=== PATIENT | female | born 1945 | race Caucasian/White ===

== ENCOUNTER → 2019-03-20 | Outpatient (CLI) | payer MEDICARE | END | disposition home or self-care (01) | LOC: LAB SHORT 15:37 → LAB 15:37 | DX: N39.0 Urinary tract infection, site not specified (principal) | CPT/HCPCS: 87077; 87086; 87186 ==

== ENCOUNTER 2022-09-28 10:01 | Observation (INO) | payer MEDICARE ==
[~2022-09-28] VITALS: Ht 167.6 cm; Wt 75.2 kg
[2022-09-28 10:22] LABS: BASOPHILS ABSOLUTE AUTO 0.09 K/mm3 (0.00-0.23); BASOPHILS PERCENT AUTO 2 % (0-2); EOSINOPHILS ABSOLUTE AUTO 0.32 K/mm3 (0.00-0.68); EOSINOPHILS PERCENT AUTO 6 % (0-6); Hematocrit 39.9 % (33.0-51.0); Hemoglobin 13.1 g/dL (11.5-16.0); IMMATURE GRAN ABSOLUTE AUTO 0.08 K/mm3 (0.00-0.10); IMMATURE GRAN PERCENT AUTO 1 % (0-1); LYMPHOCYTES ABSOLUTE AUTO 2.29 K/mm3 (0.84-5.20); LYMPHOCYTES PERCENT AUTO 41 % (21-46); MONOCYTES ABSOLUTE AUTO 0.51 K/mm3 (0.16-1.47); MONOCYTES PERCENT AUTO 9 % (4-13); Mean Corpuscular HGB 29.4 pg (26.0-34.0); Mean Corpuscular HGB Conc 32.8 g/dL (31.5-36.5); Mean Corpuscular Volume 90 fL (80-100); Mean Platelet Volume 10.6 fL (9.1-12.4); NEUTROPHILS ABSOLUTE AUTO 2.32 K/mm3 (1.96-9.15); NEUTROPHILS PERCENT AUTO 41 % (41-73); Platelet Count 209 K/mm3 (150-400); RDW Coefficient Variation 13.5 % (11.7-14.2); RDW Standard Deviation 44.3 fL (35.1-46.3); Red Blood Cell Count 4.45 M/mm3 (3.80-5.20); White Blood Cell Count 5.61 K/mm3 (4.00-11.30)
[2022-09-28 10:38] LABS: Albumin, Blood 3.9 g/dL (3.4-5.0); Albumin/Globulin Ratio 1.2 (0.8-1.8); Bilirubin, Total 0.4 mg/dL (0.1-1.0); Bun/Creatinine Ratio 25.5 (12.0-20.0); Calcium, Blood 9.2 mg/dL (8.5-10.1); Creatinine, Blood 0.55 mg/dL (0.40-1.00); Globulin, Blood 3.3 g/dL (2.2-4.0); Potassium, Blood 3.3 mmol/L (3.5-5.5); Total Protein, Blood 7.2 g/dL (6.4-8.2)
[2022-09-28] MEDS ORDERED: ONDA4ODT MM (13:22)
[2022-09-28] MEDS ORDERED: MECL25 PO (13:22)
[2022-09-28 15:41] LABS: Source, Urine Straight Cath
[2022-09-28 16:11] LABS: Appearance, Urine Clear (Clear); Bilirubin, Urine Neg (Neg); Blood, Urine Neg (Neg); Glucose Qualitative, Urine 2+ (Neg); Ketones, Urine 2+ (Neg); Leukocyte Esterase, Urine Neg (Neg); Nitrite, Urine Neg (Neg); Protein, Urine Neg (Neg); Specific Gravity, Urine 1.015 (1.003-1.022); Urobilinogen, Urine NORM (Normal)
[2022-09-28 16:14] LABS: Color, Urine Pale Yellow (P-Yellow)
[2022-09-28] MEDS ORDERED: ATORVALIQ20 MG/5 ML (19:23)
[2022-09-28] MEDS ORDERED: FLUT.05NI (19:23)
[2022-09-28] MEDS ORDERED: HYDROCODONE-AC1 EA19 (19:23)
[2022-09-28 20:47] VITALS: BP 150/80
--- NOTE | 2022-09-29 00:50 | NUR ---
LATE ENTRY ER ADMIT: 09/28/222039 RECEIVED REPORT FROM ER NURSE, RECEIVED PT FROM ER VIA W/C PLACED IN BED MADE COMFORTABLE, ORIENTED TO ROOM AND UNIT ROUTINE. PT WITH 2 PIV'S IN L AC & L WRIST. IS A&O X 4, PLEASANT & COOPERATIVE WITH ALL CARE. C/O DIZZINESS W/NAUSEA WITH POSITION CHANGES. FOR PT COMFORT PUREWICK IN PLACE. PT STATES IS SLEEPY & WANTS TO SLEEP. HAS BEEN RESTING COMFORTABLY WITH EYES CLOSED, RESP EVEN & UNLABORED. IVF'S ORDERED PER MD INFUSING, K REPLACEMENT IVPB INFUSING ORDERED. PT'S DTR AT BEDSIDE. BE IN LOW POSITION & CALL LIGHT WITHIN REACH.
--- NOTE | 2022-09-29 04:22 | NUR ---
SHIFT SUMMARY PT HAS RESTED COMFORTABLY SINCE ADMISSION FROM ER. HAS REMAINED IN BED WITH EYES CLOSED, RESP EVEN & UNLABORED. VSS. DTR HAS REMAINED AT BEDSIDE THROUGHOUT SHIFT. IVF'S CONTINUE TO INFUSE, K REPLACEMENT INFUSION RATE SLOWED TO PREVENT INFUSION PAIN AT IV SITE. PUREWICK IN PLACE. BED IN LOW POSITION, CALL LIGHT WITHIN REACH.
--- NOTE | 2022-09-29 04:30 | NUR ---
IGNITION SOURCES DENIED BY PT & PT'S DTR AT BEDSIDE. BOTH DENY SMOKING. EDUCATION PROVIDED RE: RISK OF INJURY WHEN O2 IN USE.
[2022-09-29 05:24] VITALS: BP 134/60
[2022-09-29 05:28] LABS: Calcium, Blood 8.7 mg/dL (8.5-10.1); Creatinine, Blood 0.58 mg/dL (0.40-1.00); Potassium, Blood 3.4 mmol/L (3.5-5.5)
[2022-09-29 07:10] VITALS: BP 145/68
[2022-09-29 15:08] VITALS: BP 129/72
--- NOTE | 2022-09-29 16:25 | NUR ---
DAYSHIFT SUMMARY Patient alert & oriented x4. This AM patient c/o severe nausea with movement. PRN zofran administred. Patient resting in bed all morning, MD assessed at bedside, and instructed RN to help patient ambulate and resting in upright position. Patient worked with therapy, c/o nausea but reported PRNs helped. Patient able to ambulate to commode w/o difficulty. LR infusing continously, minimal intake today d/t nausea. Provided education on ignition sources and the risks of injury while using an ignition source around oxygen. Patient verbalizes understanding and denies having any ignition source on him or in his items. Will continue plan of care, possible DC home tomorrow.
[2022-09-29 19:35] VITALS: BP 129/69
[2022-09-30 03:43] VITALS: BP 146/75
--- NOTE | 2022-09-30 04:14 | NUR ---
SHIFT SUMMARY NO CLINICAL CHANGES THIS SHIFT. VSS. PT STATES SHE FEELS MUCH BETTER & THAT DIZZINESS IS ALMOST COMPLETELY GONE. STATES SHE FEELS SLIGHT AMOUNT OF DIZZINESS UPON RISING FROM BED & STANDING UP BUT IT GOES AWAY QUICKLY. DENIED N/V THIS SHIFT. HAS BEEN ABLE TO USE WALKER FOR RESTROOM USE WITH STDBY ASSIST. BED IN LOW POSITION, CALL LIGHT WITHIN REACH. ANTICIPATES POSSIBLE DC HOME TODAY. DENIES HAVING IGNITION SOURCES IN HER POSSESSION. PROVIDED EDUCATION RE: RISK OF INJURY WHEN O2 IS IN USE. VERBALIZED GOOD UNDERSTANDING.
[2022-09-30 07:02] VITALS: BP 155/89
[2022-09-30] MEDS ORDERED: MECL25 PO (12:28)
[2022-09-30] MEDS ORDERED: Zofran4 MG PO (12:28)
[2022-09-30] MEDS ORDERED: METO10 PO (12:29)
--- NOTE | 2022-09-30 14:06 | NUR ---
DISCHARGE NOTE PT DISCHARGED TO HOME, PICKED UP BY HER DAUGHTER. TAKEN TO THEIR VEHICLE BY THE [place] MACHINE OPERATOR VIA WHEELCHAIR. IV REMOVED. MEDICATIONS FAXED TO THE PHARMACY OF HER CHOICE. DISCHARGE PAPERWORK AND EDUCATION PROVIDED. FIRE SAFETY PROTOCOLS MAINTAINED AND PT VERBALIZED UNDERSTANDING.
== END 2022-09-30 13:20 | disposition home or self-care (01) ==
LOC: ER 10:01 → MEDS 10:02 → ENPENDDIS 09-30 09:54 → MEDS 09-30 13:20
PROVIDERS: Emergency Medicine; Nurse Practitioner Acute Care; ADMIT Hospitalist
DX: R42 Dizziness and giddiness (principal); R78.5 Finding of other psychotropic drug in blood; E04.1 Nontoxic single thyroid nodule; E87.6 Hypokalemia; E78.5 Hyperlipidemia, unspecified; E11.9 Type 2 diabetes mellitus without complications; Z79.899 Other long term (current) drug therapy
CPT/HCPCS: 36416; 70450; 70496; 70498; 80048; 80053; 81003; 85025; 93005; 93010; 96372; 96374-59; 96375; 96375-59; 97110; 97112; 97161; 99285-25; A9270; G0378; J0780; J1650; J1790; J2060; J2405; J3480; J7030; J7120; Q9967

== ENCOUNTER 2024-01-07 09:23 | Day surgery (SDC) | payer MEDICARE ==
[~2024-01-07] VITALS: Ht 162.6 cm; Wt 78.5 kg
[~2024-01-07 09:23] MED LIST: AMLO10 PO; ATORVALIQ20 MG/5 ML; FLUT.05NI; HYDROCODONE-AC1 EA19; Iron Chews15 MG PO; MECL25 PO; METO10 PO; NS 500 ML IV SCH; ONDA4ODT MM; Vitamin B-12100 MCG PO; Vitamin C100 M1 PO; Zofran4 MG PO
--- NOTE | 2024-01-07 09:47 | NUR ---
PT TO [facility] FOR COLONOSCOPY. CHART REVIEWED. PLAN OF CARE DISCUSSED. PT HAS RIDE HOME.
[2024-01-07 09:56] VITALS: BP 154/97
[2024-01-07] MEDS ORDERED: propofoL 20 ML IV ONE (10:03)
--- NOTE | 2024-01-07 10:20 | NUR ---
01/07/24 1020 Sole Ocampo CONFIRMED AND REVIEWED H&P, MEDCICATIONS, ALLERGIES, MEDICAL HISTORY, RESPIRATORY HISTORY, VITAL SIGNS, 3-LEAD EKG, CONSENTS, AND PHYSICIAN ORDERS. PATIENT CONFIRMS NPO STATUS AND AGREES WITH SCHEDULED PROCEDURE. MONITOR INTACT WITH CONTINUOUS PULSE OXIMETRY, CAPNOGRAPHY, 3-LEAD EKG, INTERMITTENT BP. SUPPLEMENTAL O2 TO BE TITRATED THROUGHOUT PROCEDURE TO MAINTAIN O2 SATURATION ABOVE 90%. PATIENT DETERMINED TO BE ASA APPROPRIATE FOR PROPOFOL SEDATION PRIOR TO START OF PROCEDURE BY DR. PINTO
[2024-01-07 10:55] VITALS: BP 130/86
--- NOTE | 2024-01-07 11:21 | NUR ---
Discharge instructions reviewed with patient. Patient verbalizes understanding. Copy given to patient to take home. Patient States Post-Procedure ride home has been arranged. Discharged via wheelchair to private car for ride home.
== END 2024-01-07 11:15 | disposition home or self-care (01) ==
LOC: ORSCMMR 09:23 → ORD 10:30 → ORSCMMR 11:15
PROVIDERS: Internal Medicine Gastroenterology
PROC: 0DBP8ZX Excision of Rectum, Via Natural or Artificial Opening Endoscopic, Diagnostic (ICD-10-PCS; principal; 2024-01-07 10:30)
PROC: 0DBL8ZX Excision of Transverse Colon, Via Natural or Artificial Opening Endoscopic, Diagnostic (ICD-10-PCS; principal; 2024-01-07 10:30)
DX: Z12.11 Encounter for screening for malignant neoplasm of colon (principal); R19.5 Other fecal abnormalities; D12.3 Benign neoplasm of transverse colon; K62.1 Rectal polyp; K57.30 Diverticulosis of large intestine without perforation or abscess without bleeding; K64.8 Other hemorrhoids; Z86.0100 Personal history of colon polyps, unspecified; I10 Essential (primary) hypertension; E11.9 Type 2 diabetes mellitus without complications; Z79.899 Other long term (current) drug therapy
CPT/HCPCS: 82947; 88305; J2704; J7040

== ENCOUNTER 2024-05-19 06:36 | Day surgery (SDC) | payer MEDICARE ==
[2024-05-19] VITALS (12 sets, daily range): BP systolic 119–143; BP diastolic 63–98
[~2024-05-19] VITALS: Ht 162.6 cm; Wt 78.6 kg
[~2024-05-19 06:36] MED LIST changes: +CHROMIUM400 MCG PO; +CeFAZolin Sodium 2,000 MG in NS 100 ML IV SCH; +EZET10 PO; +Flonase 0.05% N16 GM; +Lactated Ringer's 1,000 ML IV SCH; -NS 500 ML IV SCH
[2024-05-19] MEDS ORDERED: Bupivacaine 0.5% HCl 5 MG/ML 30MLVIAL ONE (06:48)
[2024-05-19] MEDS ORDERED: Dexamethasone Sod Phos 10 MG/ML 1ML VIAL ONE (07:13)
[2024-05-19] MEDS ORDERED: Rocuronium Bromide 10 MG/ML 5ML Injection IV ONE (07:13)
[2024-05-19] MEDS ORDERED: Ketorolac Tromethamine 30mg Vial ONE (07:13)
[2024-05-19] MEDS ORDERED: Ondansetron HCl 2 MG / ML 2ML Vial ONE (07:13)
[2024-05-19] MEDS ORDERED: propofoL 20 ML IV ONE (07:13)
[2024-05-19] MEDS ORDERED: CeFAZolin Sodium 2,000 MG VIAL ONE (07:13)
[2024-05-19] MEDS ORDERED: FentaNYL Citrate 50 MCG/ML 2 ML Injection ONE ×2 (07:14→08:44)
[2024-05-19] MEDS ORDERED: Sugammadex Sodium 200 MG/2ML SDV (100 MG/ML) ONE (07:15)
[2024-05-19] MEDS ORDERED: Lidocaine HCl 2% 20 ML MDV ONE (07:23)
--- NOTE | 2024-05-19 07:31 | NUR ---
Ambulatory in Day Surgery WITH STEADY GAIT. PT ABLE TO CHANGE HERSELF INDEPENDENTLY. History, Chart, Medications and Allergies reviewed before start of procedure. Pre-Op teaching done. Pt verbalizes understanding. Patient States Post-Procedure ride home has been arranged WITH DAUGHTER. PT AGREEABLE TO HAVE 1ST YEAR DOLLY PUSHER FOLLOW HER CARE WHILE IN SURGICAL SERVICES TODAY. NS ATTEMPTED IV START IN R FOREARM. PT TOW. ATTEMPT FAILED. COBAN AND 2X2'S PLACED OVER SITE. PT'S GLASSES PLACED IN PACU WITH PT SUPERVISOR FURNACE ROOM THEM. DAUGHTER AT BEDSIDE DURING ADMISSION. OTHER FAMILY ALSO CAME BACK TO BEDSIDE BEFORE GOING TO OR. ANESTHESIA PROVIDER NOTIFIED OF PT'S DIET CONTROLLED DM. NO CBG NEEDED PER ANESTHESIA.
[2024-05-19] MEDS ORDERED: Droperidol 5 mg/2 ml Vial IV PRN (08:10)
[2024-05-19] MEDS ORDERED: HYDROcodone 5-APAP 325 TAB PO PRN (08:50)
--- NOTE | 2024-05-19 09:59 | NUR ---
PT UPT TO BATHROOM WITHOUT DIFF. DRESSING TO ABD REMAINS CDI. ALL BELONINGS RETURNED INCLUDING GLASSES ON FACE. IV OUT, D/C INSTRUCTIONS PROVIDED. ALL QUESTIONS AND CONCERNS ANSWERED. PAIN AT A TOLERABLE LEVEL AFTER RECEIVING 50 MCGS IN PACU AND 2 PAIN PILLS IN STEP. KIM PO. W/C OUT, BOTTOM SANDER AVAILABLE.
== END 2024-05-19 23:07 | disposition home or self-care (01) ==
LOC: ORSCMMR 06:36 → ORD 07:30 → ORSCMMR 23:07
PROVIDERS: Surgery
PROC: 0WUF0JZ Supplement Abdominal Wall with Synthetic Substitute, Open Approach (ICD-10-PCS; principal; 2024-05-19 07:30)
DX: K43.2 Incisional hernia without obstruction or gangrene (principal); E78.5 Hyperlipidemia, unspecified; E11.9 Type 2 diabetes mellitus without complications; Z79.899 Other long term (current) drug therapy
CPT/HCPCS: A9270; C1781; J0690; J1100; J1885; J2405; J2704; J3010; J7120